=== PATIENT | male | born 1990 | race Hispanic/Latino ===

== ENCOUNTER 2018-09-12 13:06 | Inpatient (IN) | payer SELFPAY ==
[2018-09-12] MEDS ORDERED: Morphine 4 MG/ML VIAL ONE (13:50)
[2018-09-12] MEDS ORDERED: Ketorolac Tromethamine 30 MG/ML VIAL IVP SCH (14:30)
[2018-09-12] MEDS ORDERED: Fentanyl 100 MCG/2 ML VIAL ONE (15:07)
[2018-09-12] MEDS ORDERED: Dextrose 50% Abboject 50 ML SYRINGE SLOW IVP PRN ×3 (15:13→17:21)
[2018-09-12] MEDS ORDERED: Dextrose 5% in Water 1,000 ML IV PRN ×3 (15:13→17:21)
[2018-09-12] MEDS ORDERED: Ondansetron PF 4 MG/2 ML Vial IVP PRN ×2 (15:15→17:21)
[2018-09-12] MEDS ORDERED: Ondansetron ODT 4 MG TAB PO PRN ×2 (15:15→17:21)
[2018-09-12] MEDS ORDERED: hydrALAZINE 20 MG/ML VIAL SLOW IVP PRN ×2 (15:15→17:21)
--- NOTE | 2018-09-12 16:58 | HP ---
ATTENDING TRAUMA SURGEON: Dr. Grant. ER PHYSICIAN: Dr. Howard. HISTORY OF PRESENT ILLNESS: This is a 28-year-old male, who was at work standing on a 5-gallon paint bucket whenever he stepped on the edge of it and it tumped over causing the patient to fall onto his right side. The patient immediately heard a pop/snap to his right lower leg. The patient denies any loss of consciousness and denies hitting his head. The patient was a transfer from [facility]. Dr. Astorga, Orthopedics has been consulted. The patient received Zofran and morphine for pain. The patient last n.p.o., at 10 o'clock this morning. Trauma was contacted to admit the patient. PAST MEDICAL HISTORY: Denies. PAST SURGICAL HISTORY: Denies any history. FAMILY HISTORY: Denies any family history of cardiac, hypertension, diabetes, or cancer. SOCIAL HISTORY: Does occasionally drink alcohol. Denies smoking. Denies drug use. MEDICATIONS: Denies any home medications. ALLERGIES: DENIES ANY DRUG ALLERGIES. REVIEW OF SYSTEMS: GENERAL: Denies any fatigue, weakness, fever, or chills. SKIN: Denies any changes, moles, or lumps. HEENT: Denies any head trauma, nausea, vomiting, vision changes, hearing changes, or vertigo. Denies any nasal discharge. Denies sore throat. Denies neck pain. CARDIAC: Denies history of hypertension. Denies palpitations or shortness of breath. RESPIRATORY: Denies cough, cold, or wheezing. GI: Denies any appetite changes. Denies nausea, vomiting, diarrhea, or constipation. URINARY: Denies any urinary frequency or urgency or dysuria. MUSCULOSKELETAL: Denies any muscle weakness. Complains of pain to right lower leg. Denies any numbness or tingling. NEUROLOGIC: Denies numbness, tingling, tremors, weakness, or loss of sensation. PHYSICAL EXAMINATION: GENERAL: The patient is awake and alert, in no distress. VITAL SIGNS: Blood pressure 124/77, respirations 18, 100% SpO2 on room air, heart rate 100, temperature 99.5. SKIN: No bruising noted, skin intact. HEENT: Head is atraumatic and normocephalic. Pupils are equal and reactive. NECK: Normal range of motion to neck. Neck is non tender, No tracheal deviation. CARDIAC: Regular rate and rhythm. No murmurs, gallops, or rubs. RESPIRATORY: Chest is symmetrical. Respirations are equal, bilateral, and clear. ABDOMEN: Soft and nontender with active bowel sounds. MUSCULOSKELETAL: Positive range of motion. Moves all extremities. The patient does have a splint to the right lower extremity. NEUROLOGIC: Cranial nerves are intact. LABORATORY DATA: There are no labs to review at this time. DIAGNOSTIC DATA: Right ankle x-ray shows a mildly displaced fracture involving the distal shafts of the tibia and fibula. IMPRESSION: 1. Fall, approximately 3 feet. 2. Closed right distal tib-fib fracture. 3. Acute traumatic pain. PLAN: We will admit the patient to the surgical floor. Dr. Astorga has evaluated the patient and will take the patient to the OR tomorrow morning. We will place the patient n.p.o. after midnight. We will place the patient on a pain regimen. Physical Therapy will be consulted to evaluate and treat the patient after surgery. The plan was discussed with the attending and agreed. Job ID: [id number] MTDD
[2018-09-12 17:12] LABS: Anion Gap 16 mmol/L (10-20); BUN (Urea Nitrogen) 9 mg/dL (8.9-20.6); Calc. Creatinine Clearance 0 mL/min (70-130); Calcium 9.5 mg/dL (7.8-10.44); Carbon Dioxide 22 mmol/L (22-29); Chloride 105 mmol/L (98-107); Estimated GFR-MDRD Greater than 90; Glucose 99 mg/dL (70-105); Potassium 3.7 mmol/L (3.5-5.1); Sodium 139 mmol/L (136-145)
[2018-09-12] MEDS: Acetaminophen 500 MG TAB PO SCH ×2 (17:28→20:51)
[2018-09-12] MEDS ORDERED: Ketorolac Tromethamine 15 MG/ML VIAL IVP SCH (18:00)
[2018-09-12 18:30] VITALS: BMI 26.6
[2018-09-12] MEDS: traMADol HCl 50 MG TAB PO PRN (20:50)
[2018-09-12] MEDS: Famotidine 20 MG TAB PO SCH (20:50)
[2018-09-12] MEDS: Morphine 4 MG/ML VIAL SLOW IVP PRN (20:56)
[2018-09-12] MEDS: Famotidine/PF 20 mg/2ml Vial SLOW IVP SCH (21:11)
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
[2018-09-13] MEDS: Ketorolac Tromethamine 30 MG/ML VIAL IVP SCH ×3 (01:55→12:41)
[2018-09-13] MEDS: Sodium Chloride 0.9% 1,000 ML IV SCH ×3 (01:56→16:41)
[2018-09-13] MEDS: Morphine 4 MG/ML VIAL SLOW IVP PRN ×2 (01:56→14:02)
[2018-09-13] MEDS: Acetaminophen 500 MG TAB PO SCH ×4 (07:51→21:09)
[2018-09-13 08:14] LABS: #Eosinphils 0.1 thou/uL (0.0-0.7); #Lymphocytes 1.5 thou/uL (1.20-3.40); #Monocytes 0.7 thou/uL (0.11-0.59); #Neutrophils 3.2 thou/uL (1.40-6.50); %Basophils 0.2 % (0.0-1.0); %Eosinophils 1.8 % (0.0-10.0); %Lymphocytes 27.6 % (21.0-51.0); %Monocytes 12.9 % (0.0-10.0); %Neutrophils 57.5 % (42.0-75.0); Hemoglobin 14.5 g/dL (14.0-18.0); Mean Corpuscular HGB CONC 34.1 g/dL (32.0-36.0); Mean Corpuscular Hemoglobin 31.2 pg (27.0-31.0); Mean Corpuscular Volume 91.6 fL (78.0-98.0); Mean Platelet Volume 9.1 fL (7.4-10.4); Platelet Count 174 thou/uL (130-400); RBC Distribution Width 11.4 % (11.5-14.5); Red Blood Cell (RBC) Count 4.65 mill/uL (4.70-6.10); White Blood Cell (WBC) Count 5.6 thou/uL (4.8-10.8)
[2018-09-13] MEDS: Famotidine/PF 20 mg/2ml Vial SLOW IVP SCH (08:54)
[2018-09-13] MEDS: Famotidine 20 MG TAB PO SCH ×2 (08:54→21:09)
[2018-09-13] MEDS ORDERED: CEFAZOLIN 2 GM/50 ML BAG ONE (09:32)
[2018-09-13] MEDS ORDERED: Fentanyl 100 MCG/2 ML VIAL ONE ×2 (10:13→13:05)
[2018-09-13] MEDS ORDERED: HYDROmorphone 2 MG/ML VIAL ONE (10:33)
[2018-09-13] MEDS ORDERED: Promethazine HCl 25 MG/ML VIAL SLOW IVP PRN (11:08)
[2018-09-13] MEDS ORDERED: PACU-Morphine 4MG/ML VIAL SLOW IVP PRN (11:08)
[2018-09-13] MEDS ORDERED: Ondansetron HCl/PF 4 MG/2 ML Vial IVP PRN (11:08)
[2018-09-13] MEDS ORDERED: Promethazine HCl 25 MG/ML VIAL IM PRN (11:08)
[2018-09-13] MEDS ORDERED: HYDROmorphone 2 MG/ML VIAL SLOW IVP PRN (11:08)
[2018-09-13] MEDS ORDERED: Lidocaine 1% PF 5 ML VIAL ONE (11:10)
[2018-09-13] MEDS ORDERED: Rocuronium Bromide 10 MG/ML (10ML VIAL) ONE (11:10)
[2018-09-13] MEDS ORDERED: PROPOFOL 200 MG/20 ML VIAL ONE (11:10)
[2018-09-13] MEDS ORDERED: Ondansetron PF 4 MG/2 ML Vial ONE (11:10)
[2018-09-13] MEDS ORDERED: Dexamethasone 20 MG/5 ML VIAL ONE (11:10)
[2018-09-13] MEDS ORDERED: Ketorolac Tromethamine 30 MG/ML VIAL ONE (11:10)
[2018-09-13] MEDS ORDERED: CEFAZOLIN 1 GM in Sodium Chloride 0.9% 100 ML IVPB SCH (14:00)
[2018-09-13] MEDS: traMADol HCl 50 MG TAB PO PRN (16:38)
[2018-09-13] MEDS ORDERED: Cyclobenzaprine 10 MG TAB PO PRN (17:06)
[2018-09-13] MEDS: Ibuprofen 800 MG TAB PO SCH ×2 (18:00→23:46)
[2018-09-13] MEDS: traMADol HCl 50 MG TAB PO SCH ×2 (18:01→23:46)
--- NOTE | 2018-09-13 18:46 | PRG ---
DATE OF SERVICE: 09/13/2018 SUBJECTIVE: This is a 28-year-old male, postop day zero, status post fall injury day #1 closed right distal tib-fib fracture. The patient just returned from surgery. Continues to have right leg pain. No other complaints at this time. The patient is tolerating a diet currently. Splint to right lower extremity in place. OBJECTIVE: VITAL SIGNS: Temperature 98.5, pulse 102, respirations 16, blood pressure 148/87, SpO2 96% on room air. GENERAL: The patient is awake, alert, mild distress. Reports pain to right leg. CARDIAC: Regular rate and rhythm. RESPIRATORY: Chest is symmetrical. Respirations equal bilateral and clear, nonlabored. ABDOMEN: Soft, nontender. MUSCULOSKELETAL: Positive range of motion in all extremities. NEUROLOGIC: GCS 15. No focal deficit. LABORATORY DATA: White count 5.6, RBC 4.65, hemoglobin 14.5, hematocrit 42.6, platelets 174. Sodium 139, potassium 3.9, chloride 105, BUN 9, creatinine 0.97, estimated GFR 90. Glucose 99, calcium 9.5. DIAGNOSTICS: There is no diagnostics to review today. IMPRESSION: 1. Fall, approximately 3 feet. 2. Closed right distal tib-fib fracture, postop day zero. 3. Acute traumatic pain. PLAN: Will put on scheduled pain medications. If the pain is well controlled, the patient is okay to be discharged to home, per Orthopedics. We will continue the patient's regular diet. The plan has been discussed with the attending surgeon and agreed. Job ID: [id number] MTDD
[2018-09-14] MEDS: Acetaminophen 500 MG TAB PO SCH ×3 (03:01→15:35)
[2018-09-14] MEDS: Ibuprofen 800 MG TAB PO SCH ×2 (06:50→11:50)
[2018-09-14] MEDS: traMADol HCl 50 MG TAB PO SCH ×2 (06:50→11:50)
[2018-09-14] MEDS: Famotidine 20 MG TAB PO SCH (08:45)
[2018-09-14] MEDS ORDERED: Senokot S 8.6-50 MG TAB PO SCH (10:45)
[2018-09-14] MEDS ORDERED: Aspirin 81 mg Enteric Coated Tablet PO SCH (10:45)
[2018-09-14 16:08] VITALS: BP 134/76; TEMP 97.3
--- NOTE | 2018-09-14 23:52 | RAD ---
RIGHT LOWER LEG INTRAOPERATIVE FLUOROSCOPY TWO VIEWS: History: Leg fracture. FINDINGS: Intraoperative fluoroscopy is provided for internal fixation as performed by Dr. Astorga. Spot fluoro scopic images shows long medullary acosta and screws transfixing the distal tibial fracture in anatomic alignment. Fluoro time: 311 seconds. POS: [facility]
--- NOTE | 2018-09-15 07:18 | HP ---
ADDENDUM: CHIEF COMPLAINT: Right leg pain. This is an addendum to the H and P dictated by Katie Holland, Trauma Nurse Practitioner. I have reviewed her H and P, and confirmed the details with the patient and his family. In short, Mr. Washburn is a 28-year-old man, who fell off a bucket, breaking the distal tibia and fibula in his right leg. He has no pain elsewhere and denies any other injuries. He had no loss of consciousness. PAST MEDICAL HISTORY: None. PAST SURGICAL HISTORY: None. FAMILY HISTORY: None. REVIEW OF SYSTEMS: Negative except pain in the right leg. ALLERGIES: NO ALLERGIES. MEDICATIONS: No medications. SOCIAL HISTORY: No tobacco or drugs. Rare alcohol. PHYSICAL EXAMINATION: Complete physical examination was personally performed. No abnormalities or injuries except for the right leg, which is splinted. He has normal sensation, capillary refill, and movement of his toes. LABORATORY DATA: Labs and x-rays are reviewed, and I agree with the written report. ASSESSMENT: Right tibia and fibular fractures, closed. The patient is on the OR schedule for tomorrow for ORIF. He is completely stable for this procedure and has no other ongoing or acute traumatic issues. Job ID: [id number]
--- NOTE | 2018-09-15 15:05 | OP ---
DATE OF PROCEDURE: 09/13/2018 PREOPERATIVE DIAGNOSES: Right distal third shaft, tibial plafond, A1 distal tibia with a comminuted distal fibular fracture. POSTOPERATIVE DIAGNOSES: Right distal third shaft, tibial plafond, [id number] tibia with a comminuted distal fibular fracture and stable syndesmosis. PROCEDURES PERFORMED: 1. Intramedullary nail right distal tibia fracture. 2. Short-leg splint. 3. Nonoperative management of the distal fibular fracture/stress syndesmosis. HELP DESK INTERNSHIP: None. ANESTHESIOLOGIST: Dr. Maria. ANESTHESIA: The patient received a general endotracheal intubation. ESTIMATED BLOOD LOSS: 100 mL. TOURNIQUET TIME: None. IMPLANTS: Implants were a Synthes 10 mm x 330 mm titanium cannulated nail with a 5 mm end cap and three 5.0 mm locking screws. ANTIBIOTICS: Ancef 2 g. COMPLICATIONS: None. HISTORY OF PRESENT ILLNESS: Mr. Washburn is a 28-year-old male, who is status post fall off a pail twisting and breaking his distal tibia and fibula. I discussed with the patient's family, risks and benefits of intramedullary nailing for right distal tibia fracture. I discussed risks and benefits of surgery, pain, scar, bleeding, infection, damage to vital structures, decreased range of motion and strength, nonunion, malunion, loss of life or limb. I discussed with the patient that he may have a little rotational deformity, could be a little bit short and I discussed with the patient that the fracture will take between 18 and 24 weeks to heal. The patient understood this and the risks and benefits and he elected to proceed. Time-out was performed designating the patient's right lower extremity as the operative site, based on site, consents and marking with time-out. DESCRIPTION OF PROCEDURE: The patient's leg was prepped and draped in a sterile fashion. I made an incision down in the midline down to the tendon. I exposed and placed my guidepin under fluoroscopic guidance under AP and lateral radiographs. I liked the overall position. I then opened my drill hole. After opening up my guide hole, I placed my wire with finger down, with length of the finger I placed clamps, 2 Marcelino clamps across from anteromedial to posterolateral, just found the fibula to help compress and clamp across the fracture fragment. I then placed with using the finger the guidewire in the position I liked for reduction. After completion of this, I then sequentially reamed a 5 up to an 11, I was outside the articular surface. I then chose a size 10 nail with 330 and placed the nail down looking at reduction under AP and lateral radiographs. I then came up approximately to the knee. I placed my oblique screw in the dynamic position for some compression to the fracture and drilling bicortically and filling 5.0 screw. I then came up and placed 5 mm end cap. I moved distally, placed 2 screws, 1 in the transverse and 1 oblique, making stab incision perfect circles drilling and filling with 5.0 additional screws. I then checked the patient's fracture, it had good overall alignment and stability. Had stability to dynamize or compress to the fracture site. He had good overall alignment. The fibula seemed out the length, I liked the overall alignment. I stressed the ankle before and there was still stability in the syndesmosis. Elected to treat the fibula nonoperatively. I then washed, closed the tendon proximally with #1-0, 2-0, and ceci. I closed all the 3 stab hole incisions with 2-0 and ceci. I then placed the patient in a short-leg splint. The patient will be admitted back to Trauma. He will stay over 24 hours of crutch training, be sent home with followup in 2 weeks. We will transition him at that point 2 weeks to a boot in which he will remain nonweightbearing. The patient will follow up me in 2 weeks in clinic. Job ID: [id number]
--- NOTE | 2018-09-15 21:21 | DIS ---
DATE OF ADMISSION: 09/12/2018 DATE OF DISCHARGE: 09/14/2018 CONSULTS: Orthopedics, Dr. Astorga. DISCHARGING TRAUMA PHYSICIAN: Dr. Grant. PROCEDURE PERFORMED: On 09/12/2018, right ankle x-ray shows a mildly displaced fracture involving the distal shafts of the tibia and fibula. PRIMARY DIAGNOSIS: Closed right distal tib-fib fracture. SECONDARY DIAGNOSES: Fall, approximately 3 feet; acute traumatic pain. DISCHARGE MEDICATIONS: 1. Tramadol 100 mg p.o. q.6 hours p.r.n. pain. 2. Senokot. 3. Ibuprofen 800 mg q.6 hours, pain. 4. Aspirin 81 mg daily, DVT prophylaxis. 5. Acetaminophen 1000 mg q.6 hours, pain. 6. No discontinue medications. HISTORY OF PRESENT ILLNESS AND HOSPITAL COURSE: This is a 28-year-old male, who was at work, standing on a five gallon paint bucket, then he stepped off the edge as it tumped over, causing him to fall onto his right side. The patient immediately heard a pop/snap sound to his right lower leg. The patient denied any loss of consciousness or hitting his head. The patient was transferred from [place] [facility]. Trauma Services was contacted to admit the patient and Orthopedics, Dr. Astorga was consulted for repair. The patient was taken the same day to the OR for repair. The patient had no events during his hospital stay. His pain was well controlled. The patient was able to work with Physical Therapy on the day of discharge. The patient was examined on the day of discharge with normal vital signs and unremarkable exam including cardiopulmonary and GI. The patient was deemed stable for discharge to home. The plan was discussed with Dr. Grant and agreed with discharge to home. DISPOSITION: Stable. DISCHARGE INSTRUCTIONS: Location: Home. Diet: Regular diet. Activity: Orthopedic limitations. Nonweightbearing to right lower extremity. Ambulate with crutches. FOLLOWUP: Follow up with Dr. Atwood as needed. Follow up with Dr. Astorga in 2 weeks. Job ID: [id number]
== END 2018-09-14 16:25 | disposition home or self-care (01) | DRG 494 ==
LOC: ERS 13:06 → SURG B 13:30 → OBSVTOIN 13:30
PROVIDERS: ADMIT Surgery; ATTEND Surgery
PROC: 0QSG06Z Reposition Right Tibia with Intramedullary Internal Fixation Device, Open Approach (ICD-10-PCS; principal; 2018-09-13)
DX: S82.871A Displaced pilon fracture of right tibia, initial encounter for closed fracture (principal); S82.454A Nondisplaced comminuted fracture of shaft of right fibula, initial encounter for closed fracture; W17.89XA Other fall from one level to another, initial encounter
CPT/HCPCS: 27752; 27781; 36415; 76000; 80048; 85025; 96374; 96375; C1713; C1769; G0390; J0690; J1100; J1170; J1885; J2001; J2270; J2405; J2704; J3010; S0028